=== PATIENT | female | born 1960 | race African-American/Black ===

== ENCOUNTER 2016-10-16 06:55 | Emergency (ER) | payer OTHER ==
[~2016-10-16] VITALS: Ht 157.5 cm; Wt 87.1 kg
[2016-10-16 07:20] VITALS: BP 136/82
[2016-10-16] MEDS ORDERED: diphenhdrAMINE HCL 50 MG/1 ML VL IM ONE (07:30)
[2016-10-16] MEDS ORDERED: EPINEPHrine HCL 1 MG/1 ML AMP SC ONE (07:30)
== END 2016-10-16 08:27 | disposition home or self-care (01) ==
LOC: ER 06:55
DX: T78.40XA Allergy, unspecified, initial encounter (principal); Z91.040 Latex allergy status
CPT/HCPCS: 96372; 99284; J0171; J1200